=== PATIENT | male | born 1970 | race Caucasian/White ===

== ENCOUNTER → 2017-02-10 | Outpatient (CLI) | payer BC | END | disposition home or self-care (01) | LOC: RAD 16:41 | DX: M16.11 Unilateral primary osteoarthritis, right hip (principal); M85.68 Other cyst of bone, other site ==

== ENCOUNTER 2017-07-17 08:59 | Emergency (ER) | payer BC ==
[~2017-07-17] VITALS: Ht 187.9 cm; Wt 136.1 kg
[2017-07-17] MEDS ORDERED: NORCO 5-325 TA1 EACH PO (11:22)
== END 2017-07-17 11:34 | disposition home or self-care (01) ==
LOC: ED 08:59
DX: S62.306A Unspecified fracture of fifth metacarpal bone, right hand, initial encounter for closed fracture (principal); W22.01XA Walked into wall, initial encounter; Y93.89 Activity, other specified; Y92.89 Other specified places as the place of occurrence of the external cause; Y99.8 Other external cause status

== ENCOUNTER 2022-03-24 01:36 | Emergency (ER) | payer SELFPAY ==
[~2022-03-24] VITALS: Wt 136.1 kg
[~2022-03-24 01:36] MED LIST: NORCO 5-325 TA1 EACH PO
[2022-03-24 02:17] LABS: BASO # 0.1 10*3/uL (0.0-0.1); BASO % 0.9 % (0.0-1.0); EOS # 0.7 10*3/uL (0.0-0.4); EOS % 7.9 % (1.0-4.0); HEMATOCRIT 43.5 % (42.0-52.0); LYMPH # 1.6 10*3/uL (1.3-4.4); LYMPH % 18.7 % (27.0-41.0); MEAN CELL VOLUME 92.8 fl (80.0-94.0); MEAN CORPUSCULAR HGB CONC 35.6 g/dl (33.0-37.0); MEAN PLATELET VOLUME 9.5 fl (9.6-12.3); MONO # 0.6 10*3/uL (0.1-1.0); MONO % 6.5 % (3.0-9.0); NEUT # 5.7 10*3/uL (2.3-7.9); NEUT % 65.8 % (47.0-73.0); PLATELET COUNT AUTOMATED 199 10*3/uL (130-400); RED BLOOD COUNT 4.69 10*6/uL (4.50-5.90); RED CELL DISTRI WIDTH 12.1 % (0-14.5); WHITE BLOOD COUNT 8.7 10*3/uL (4.8-10.8)
[2022-03-24 02:32] LABS: ALKALINE PHOSPHATASE 114 U/L (45-117); BUN 9 mg/dl (7-24); CHLORIDE 103 mmol/L (98-107); CREATININE 1.14 mg/dL (0.70-1.30); LIPASE 314 U/L (73-393); POTASSIUM 4.1 mmol/L (3.5-5.1); SGOT/AST 159 IU/L (3-35); SGPT/ALT 221 U/L (12-78); SODIUM 136 mmol/L (136-145); TOTAL PROTEIN 7.9 gm/dL (6.4-8.2)
[2022-03-24 03:12] LABS: BILIRUBIN Negative (Negative); BLOOD Negative (Negative); CLARITY Clear (Clear); COLOR Yellow (Yellow); GLUCOSE Negative (Negative); KETONE Trace (Negative); LEUKO ESTERASE Negative (Negative); NITRITE Negative (Negative); SPECIFIC GRAVITY 1.015 (1.001-1.030)
[2022-03-24 03:22] LABS: MUCOUS 1+
== END 2022-03-24 05:51 | disposition home or self-care (01) ==
LOC: ED 01:36
PROVIDERS: Emergency Medicine
DX: R10.9 Unspecified abdominal pain (principal)

== ENCOUNTER → 2022-09-06 | Outpatient (CLI) | payer BC | END | disposition home or self-care (01) | LOC: RAD 13:24 | PROVIDERS: ATTEND Orthopaedic Surgery | DX: M25.551 Pain in right hip (principal); M17.11 Unilateral primary osteoarthritis, right knee ==

== ENCOUNTER 2023-05-22 16:16 | Inpatient (IN) | payer SELFPAY ==
[~2023-05-22] VITALS: Ht 190.5 cm; Wt 149.7 kg
[2023-05-22 16:17] VITALS: BP 144/84
[2023-05-22 16:39] LABS: BASO # 0.1 10*3/uL (0.0-0.1); BASO % 1.2 % (0.0-1.0); EOS # 0.8 10*3/uL (0.0-0.4); EOS % 9.6 % (1.0-4.0); HEMATOCRIT 53.3 % (42.0-52.0); LYMPH # 1.9 10*3/uL (1.3-4.4); LYMPH % 22.2 % (27.0-41.0); MEAN CELL VOLUME 86.9 fl (80.0-94.0); MEAN CORPUSCULAR HGB 31.2 pg (27.0-31.0); MEAN CORPUSCULAR HGB CONC 35.8 g/dl (33.0-37.0); MEAN PLATELET VOLUME 9.1 fl (9.6-12.3); MONO # 0.7 10*3/uL (0.1-1.0); MONO % 8.2 % (3.0-9.0); NEUT % 58.6 % (47.0-73.0); PLATELET COUNT AUTOMATED 183 10*3/uL (130-400); RED BLOOD COUNT 6.13 10*6/uL (4.50-5.90); RED CELL DISTRI WIDTH 13.4 % (0-14.5); WHITE BLOOD COUNT 8.5 10*3/uL (4.8-10.8)
[2023-05-22 16:50] LABS: ACT PARTIAL THROMBO TIME 30.5 SECONDS (20.0-32.1); INTERNATIONAL NORM RATIO 1.2 (2.0-3.5)
[2023-05-22 17:05] LABS: ALKALINE PHOSPHATASE 67 U/L (46-116); BUN 9 mg/dl (9-23); CHLORIDE 97 mmol/L (98-107); LIPASE 46 U/L (12-53); POTASSIUM 3.4 mmol/L (3.4-5.1); SGPT/ALT 75 U/L (10-49); TOTAL PROTEIN 7.9 gm/dL (6.0-8.0)
[2023-05-22] MEDS ORDERED: ATENOLOL-CHLOR1 EAC1 PO (21:59)
[2023-05-22] MEDS ORDERED: LEVOTHYROXINE150 MCG PO (22:00)
[2023-05-22 22:08] VITALS: BP 152/78
[2023-05-23 03:13] VITALS: BP 143/93
[2023-05-23 06:24] LABS: BUN 11 mg/dl (9-23); CHLORIDE 96 mmol/L (98-107); CHOLESTEROL 180 mg/dL (<200); FREE T4 1.11 ng/dl (0.89-1.76); LDL CHOLESTEROL 116 mg/dL (9-159); POTASSIUM 4.1 mmol/L (3.4-5.1); TRIGLYCERIDES 134 mg/dl (<150)
[2023-05-23 06:31] LABS: BASO # 0.1 10*3/uL (0.0-0.1); BASO % 0.8 % (0.0-1.0); EOS # 0.9 10*3/uL (0.0-0.4); EOS % 10.4 % (1.0-4.0); HEMATOCRIT 53.6 % (42.0-52.0); LYMPH % 23.5 % (27.0-41.0); MEAN CORPUSCULAR HGB 30.7 pg (27.0-31.0); MEAN CORPUSCULAR HGB CONC 33.6 g/dl (33.0-37.0); MEAN PLATELET VOLUME 9.9 fl (9.6-12.3); MONO # 0.8 10*3/uL (0.1-1.0); MONO % 10.1 % (3.0-9.0); NEUT # 4.6 10*3/uL (2.3-7.9); NEUT % 55.1 % (47.0-73.0); PLATELET COUNT AUTOMATED 189 10*3/uL (130-400); RED BLOOD COUNT 5.87 10*6/uL (4.50-5.90); RED CELL DISTRI WIDTH 13.7 % (0-14.5); WHITE BLOOD COUNT 8.3 10*3/uL (4.8-10.8)
[2023-05-23 06:34] LABS: MEAN CELL VOLUME 91.3 fl (80.0-94.0)
[2023-05-23] MEDS ORDERED: VALIUM2 MG PO (08:12)
[2023-05-23] MEDS ORDERED: ZYRTEC-D TABLE1 EACH PO (08:13)
[2023-05-23 08:21] LABS: VITAMIN D, 25-HYDROXY 36.1 ng/mL (30-100)
[2023-05-23] MEDS ORDERED: LORAZEPAM1 MG PO ×2 (13:54)
[2023-05-23] MEDS ORDERED: ESCITALOPRAM OX10 MG PO (13:57)
[2023-05-23] MEDS ORDERED: ASPIRIN CHEWABL81 MG PO (14:40)
== END 2023-05-23 14:21 | disposition home or self-care (01) | DRG 69 ==
LOC: ED 16:16 → EDHOLD 18:08
PROVIDERS: Emergency Medicine; Student in an Organized Health Care Education/Training Program; ADMIT Internal Medicine; ATTEND Internal Medicine
DX: G45.9 Transient cerebral ischemic attack, unspecified (principal); F10.930 Alcohol use, unspecified with withdrawal, uncomplicated; E87.1 Hypo-osmolality and hyponatremia; Z68.41 Body mass index [BMI] 40.0-44.9, adult; G47.33 Obstructive sleep apnea (adult) (pediatric); I10 Essential (primary) hypertension; F41.9 Anxiety disorder, unspecified; E03.9 Hypothyroidism, unspecified; D75.1 Secondary polycythemia; Z96.641 Presence of right artificial hip joint; E87.8 Other disorders of electrolyte and fluid balance, not elsewhere classified; E83.42 Hypomagnesemia; R74.01 Elevation of levels of liver transaminase levels; E66.01 Morbid (severe) obesity due to excess calories

== ENCOUNTER → 2024-09-24 | Outpatient (CLI) | payer OTHER ==
[~2024-09-24] MED LIST changes: +ASPIRIN CHEWABL81 MG PO; +ATENOLOL-CHLOR1 EAC1 PO; +ESCITALOPRAM OX10 MG PO; +LEVOTHYROXINE150 MCG PO; +LORAZEPAM1 MG PO; +VALIUM2 MG PO; +ZYRTEC-D TABLE1 EACH PO
== END | disposition home or self-care (01) ==
LOC: NM 09-23 07:00
PROVIDERS: ATTEND Orthopaedic Surgery
DX: T84.84XA Pain due to internal orthopedic prosthetic devices, implants and grafts, initial encounter (principal); M25.551 Pain in right hip; Z96.641 Presence of right artificial hip joint; Y83.8 Other surgical procedures as the cause of abnormal reaction of the patient, or of later complication, without mention of misadventure at the time of the procedure; Y92.89 Other specified places as the place of occurrence of the external cause